=== PATIENT | male | born 1945 | race Caucasian/White ===

== ENCOUNTER → 2019-08-28 08:25 | Outpatient (BNVA) | payer MEDICARE, SELFPAY | PROVIDERS: Family Provider Family Medicine; PCP Nurse Practitioner Family; Referring Provider Licensed Practical Nurse; Visit Provider Anesthesiology Pain Medicine | DX: M51.17 Intervertebral disc disorders with radiculopathy, lumbosacral region (principal); M54.9 Dorsalgia, unspecified; Z79.891 Long term (current) use of opiate analgesic | CPT/HCPCS: 99204 ==

== ENCOUNTER → 2019-09-09 12:57 | Outpatient (BNVA) | payer MEDICARE, SELFPAY | PROVIDERS: Family Provider Family Medicine; PCP Nurse Practitioner Family; Visit Provider Anesthesiology Pain Medicine | DX: M51.17 Intervertebral disc disorders with radiculopathy, lumbosacral region (principal); M47.816 Spondylosis without myelopathy or radiculopathy, lumbar region; M54.9 Dorsalgia, unspecified | CPT/HCPCS: 64493; 64494; 64495; J2001; J3490 ==

== ENCOUNTER → 2019-09-24 08:55 | Outpatient (BNVA) | payer MEDICARE, SELFPAY | PROVIDERS: Family Provider Family Medicine; PCP Nurse Practitioner Family; Visit Provider Anesthesiology Pain Medicine | DX: M19.012 Primary osteoarthritis, left shoulder (principal); M51.17 Intervertebral disc disorders with radiculopathy, lumbosacral region; M54.9 Dorsalgia, unspecified | CPT/HCPCS: 20610; 99214; J1030; J3490 ==

== ENCOUNTER → 2019-10-24 11:25 | Outpatient (BNVA) | payer MEDICARE, SELFPAY | PROVIDERS: Family Provider Family Medicine; PCP Nurse Practitioner Family; Referring Provider Anesthesiology Pain Medicine; Visit Provider Specialist | DX: M25.519 Pain in unspecified shoulder (principal); R52 Pain, unspecified; M19.012 Primary osteoarthritis, left shoulder; M25.512 Pain in left shoulder; M24.012 Loose body in left shoulder | CPT/HCPCS: 73030 ==

== ENCOUNTER 2019-10-31 12:41 | Outpatient (CLI) | payer MEDICARE, SELFPAY ==
--- NOTE | 2019-10-31 13:00 | MR_ITS ---
WS: [id number] MRI LEFT SHOULDER NONCONTRAST TECHNIQUE: Sagittal T2, coronal T1, T2 and proton density imaging. Axial gradient PDE imaging. CLINICAL INFORMATION: M19.019 Primary osteoarthritis, unspecified shoulder COMPARISON: None. FINDINGS: Moderate degenerative arthritis right AC joint with mild edema. Moderate downsloping of the acromion. Slight subacromial spurring. Slight impingement on the supraspinatus and rotator cuff. Chronic thinn ing of the rotator cuff. Mild tendinopathy with a tiny insertional tear distal supraspinatus. Tendino juan distal infraspinatus. Teres minor appears intact. Subscapularis appears intact. No high-grade f ull-thickness rotator cuff tear. Normal biceps tendon in the bicipital groove with physiologic fluid along the tendon sheath. Normal i ntra-articular biceps tendon. Numerous loose bodies involving the subacromial/subdeltoid bursa and subcoracoid bursa. Large loose b odies in the subcoracoid bursa. Hypertrophic spurring glenohumeral joint. Advanced degenerative frayi ng of the glenoid labrum. Prominent protruding osteophyte extending from the humeral neck into the ax illary recess measuring 2.4 x 2.4 cm. MR/MR shoulder LT wo con* [id number] IMPRESSION: 1. Advanced osteoarthritis AC joint with moderate downsloping of the acromion. Chronic thinning of the rotator cuff. 2. No full-thickness rotator cuff tears. Tiny insertional tear distal supraspi natus with tendinopathy in the supraspinatus and infraspinatus. 3. Teres minor appears intact. Subscapularis appears intact. 4. Normal biceps tendon in the bicipital groove.. 5. Large calcified loose bodies in the subacromial/subdeltoid bursa and subcor acoid recess. Large loose bodies in the subcoracoid bursa measure up to 2.1 CM. 6. Hypertrophic spurring along the humeral neck with large protruding osteophy te measuring 2.3 x 2.4 CM.
== END 2019-10-31 12:42 | disposition home or self-care (01) ==
LOC: RADSHAW 12:43
PROVIDERS: PCP Nurse Practitioner Family; Visit Provider Specialist
DX: M19.012 Primary osteoarthritis, left shoulder (principal); M25.712 Osteophyte, left shoulder; M75.102 Unspecified rotator cuff tear or rupture of left shoulder, not specified as traumatic
CPT/HCPCS: 73221

== ENCOUNTER 2019-11-18 11:16 | Outpatient (RCR) | payer MEDICARE, SELFPAY | END 2019-12-02 23:59 | disposition home or self-care (01) | LOC: SPT 11:16 | PROVIDERS: PCP Nurse Practitioner Family; Referring Provider Specialist; Visit Provider Specialist | DX: M25.512 Pain in left shoulder (principal) | CPT/HCPCS: 97110; 97161 ==

== ENCOUNTER → 2019-11-19 09:37 | Outpatient (BNVA) | payer MEDICARE, SELFPAY | PROVIDERS: Family Provider Family Medicine; PCP Nurse Practitioner Family; Visit Provider Anesthesiology Pain Medicine | DX: M47.816 Spondylosis without myelopathy or radiculopathy, lumbar region (principal); M51.17 Intervertebral disc disorders with radiculopathy, lumbosacral region; M54.9 Dorsalgia, unspecified; M19.012 Primary osteoarthritis, left shoulder; M19.011 Primary osteoarthritis, right shoulder | CPT/HCPCS: 99213 ==

== ENCOUNTER 2019-12-03 06:00 | Outpatient (RCR) | payer MEDICARE, SELFPAY | END 2019-12-24 23:00 | disposition home or self-care (01) | LOC: SPT 06:00 | PROVIDERS: PCP Nurse Practitioner Family; Referring Provider Specialist; Visit Provider Specialist | DX: M25.512 Pain in left shoulder (principal) | CPT/HCPCS: 97110 ==

== ENCOUNTER → 2019-12-17 12:25 | Outpatient (BNVA) | payer MEDICARE, SELFPAY | PROVIDERS: Family Provider Family Medicine; PCP Nurse Practitioner Family; Visit Provider Anesthesiology Pain Medicine | DX: M47.816 Spondylosis without myelopathy or radiculopathy, lumbar region (principal); M54.9 Dorsalgia, unspecified | CPT/HCPCS: 64493; 64494; 64495; J3490 ==

== ENCOUNTER → 2020-01-08 08:17 | Outpatient (BNVA) | payer MEDICARE, SELFPAY | PROVIDERS: Family Provider Family Medicine; PCP Nurse Practitioner Family; Visit Provider Anesthesiology Pain Medicine | DX: M51.17 Intervertebral disc disorders with radiculopathy, lumbosacral region (principal); M47.816 Spondylosis without myelopathy or radiculopathy, lumbar region; M54.9 Dorsalgia, unspecified; M19.012 Primary osteoarthritis, left shoulder; M19.011 Primary osteoarthritis, right shoulder | CPT/HCPCS: 99213; 99214 ==

== ENCOUNTER → 2020-02-03 12:48 | Outpatient (BNVA) | payer MEDICARE, SELFPAY | PROVIDERS: Family Provider Family Medicine; PCP Nurse Practitioner Family; Visit Provider Anesthesiology Pain Medicine | DX: M47.816 Spondylosis without myelopathy or radiculopathy, lumbar region (principal); M54.9 Dorsalgia, unspecified | CPT/HCPCS: 64635; 64636; J1030 ==

== ENCOUNTER → 2020-02-17 12:42 | Outpatient (BNVA) | payer MEDICARE, SELFPAY | PROVIDERS: Family Provider Family Medicine; PCP Nurse Practitioner Family; Visit Provider Anesthesiology Pain Medicine | DX: M47.816 Spondylosis without myelopathy or radiculopathy, lumbar region (principal); M54.9 Dorsalgia, unspecified | CPT/HCPCS: 64635; 64636; J1030 ==

== ENCOUNTER → 2020-03-04 09:24 | Outpatient (BNVA) | payer MEDICARE, SELFPAY | PROVIDERS: Family Provider Family Medicine; PCP Nurse Practitioner Family; Visit Provider Anesthesiology Pain Medicine | DX: M51.17 Intervertebral disc disorders with radiculopathy, lumbosacral region (principal); M47.816 Spondylosis without myelopathy or radiculopathy, lumbar region; M19.012 Primary osteoarthritis, left shoulder; M19.011 Primary osteoarthritis, right shoulder; M54.9 Dorsalgia, unspecified; Z79.891 Long term (current) use of opiate analgesic | CPT/HCPCS: 99214 ==

== ENCOUNTER → 2020-04-14 08:34 | Outpatient (BNVA) | payer MEDICARE, SELFPAY | PROVIDERS: Family Provider Family Medicine; PCP Nurse Practitioner Family; Referring Provider Nurse Practitioner Family; Visit Provider Urology | DX: N42.89 Other specified disorders of prostate (principal) | CPT/HCPCS: 81003 ==

== ENCOUNTER → 2020-05-28 08:28 | Outpatient (BNVA) | payer MEDICARE, SELFPAY | PROVIDERS: Family Provider Family Medicine; PCP Nurse Practitioner Family; Visit Provider Anesthesiology Pain Medicine | DX: G89.29 Other chronic pain (principal); M19.012 Primary osteoarthritis, left shoulder; M48.062 Spinal stenosis, lumbar region with neurogenic claudication; M51.17 Intervertebral disc disorders with radiculopathy, lumbosacral region; M19.011 Primary osteoarthritis, right shoulder; M75.82 Other shoulder lesions, left shoulder; M54.9 Dorsalgia, unspecified; M47.816 Spondylosis without myelopathy or radiculopathy, lumbar region | CPT/HCPCS: 20610; 99214; J1030; J3490 ==

== ENCOUNTER → 2020-06-05 11:06 | Outpatient (BNVA) | payer MEDICARE, SELFPAY | PROVIDERS: Family Provider Family Medicine; PCP Nurse Practitioner Family; Referring Provider Anesthesiology Pain Medicine; Visit Provider Orthopaedic Surgery | DX: M47.896 Other spondylosis, lumbar region (principal); M54.5 Low back pain | CPT/HCPCS: 72110 ==

== ENCOUNTER → 2020-06-25 08:24 | Outpatient (BNVA) | payer MEDICARE, SELFPAY | PROVIDERS: Family Provider Family Medicine; PCP Nurse Practitioner Family; Visit Provider Anesthesiology Pain Medicine | DX: M51.17 Intervertebral disc disorders with radiculopathy, lumbosacral region (principal); M19.012 Primary osteoarthritis, left shoulder; M19.011 Primary osteoarthritis, right shoulder; M48.062 Spinal stenosis, lumbar region with neurogenic claudication; M54.9 Dorsalgia, unspecified; M47.816 Spondylosis without myelopathy or radiculopathy, lumbar region; M19.019 Primary osteoarthritis, unspecified shoulder; Z79.891 Long term (current) use of opiate analgesic | CPT/HCPCS: 99214 ==

== ENCOUNTER → 2020-08-05 06:34 | Day surgery (SDC) | payer MEDICARE, SELFPAY | PROVIDERS: PCP Nurse Practitioner Family; Visit Provider Orthopaedic Surgery | DX: Z01.818 Encounter for other preprocedural examination (principal); M48.062 Spinal stenosis, lumbar region with neurogenic claudication | CPT/HCPCS: 93005 ==

== ENCOUNTER → 2020-08-07 09:27 | Outpatient (BNVA) | payer MEDICARE, SELFPAY | PROVIDERS: PCP Nurse Practitioner Family; Visit Provider Orthopaedic Surgery | DX: Z01.812 Encounter for preprocedural laboratory examination (principal); Z20.822 Contact with and (suspected) exposure to COVID-19 | CPT/HCPCS: 87635 ==

== ENCOUNTER 2020-08-14 05:49 | Day surgery (SDC) | payer MEDICARE, SELFPAY ==
[2020-08-05 11:20] VITALS: BMI 36.2
[2020-08-05 11:56] LABS: Basophils % 0.4 %; Eosinophils # 0.1 10^3/uL (0.0-0.8); Eosinophils % 0.9 %; Hematocrit 42.4 % (42.0-52.0); Hemoglobin 14.1 g/dL (11.7-16.6); Lymphocytes # 1.9 10^3/uL (0.8-4.8); Lymphocytes % 19.3 %; Mean Corpuscular HGB Conc 33.3 g/dL (30.0-36.0); Mean Corpuscular Volume 93.2 fL (80-94); Mean Platelet Volume 11.4 fL (7.4-10.4); Monocytes # 0.8 10^3/uL (0.2-0.9); Monocytes % 8.2 %; Neutrophils # 6.95 10^3/uL (1.8-7.7); Neutrophils % 70.9 %; Nucleated Red Blood Cells % 0 %; Platelet Count 213 10^3/cmm (130-400); Red Blood Count 4.55 10^6/uL (4.1-5.3); Red Cell Distribution Width 13.1 % (12.1-15.1); White Blood Count 9.8 10^3/uL (4.0-10.0)
--- NOTE | 2020-08-05 12:09 | ECG_ITS ---
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 Measurements Intervals [place] Rate: 62 P: 167 MT: 170 QRS: 202 QRSD: 94 T: 132 QT: 397 QTc: 405 Interpretive Statements SINUS RHYTHM ARM LEADS REVERSED [INVERTED P AND QRS IN I] ATYPICAL ECG No previous ECG available for comparison Electronically Signed On 08-06-2020 9:41:38 CDT by Guero Tran M.D. [id number]
--- NOTE | 2020-08-05 12:10 | ANES.PREANE2 ---
Pre-Anesthetic Assessment Pre-Anesthetic Assessment: Height/Weight: Height 1.8 m Weight 117.934 kg Preop Diagnosis: lumbar stenosis Proposed Procedure: Operation Date: 08/14/20 09:45 Proposed Procedures p lumbar decompression L3/4 L 4/5 [id number] m48.062(Not Applicable) - Preet Loly Beth, DO Was Beta Dilcia taken within 24 hours: N/A Was Clonidine taken within 24 hours: N/A Social: Social History: No alcohol and No tobacco Exam: Pre-Anes Outpt Exam: alert, oriented x 3, clear to auscultation bilaterally and regular rate & rhythm Airway: Submandibular: WNL Cervical ROM: WNL MP: 2 Dentition: Full Pulmonary: Pulmonary: Sleep apnea CV/HEM: CV/HEM: HTN Metabolic: Metabolic: DM, Hyperlipidemia and Morbid obesity Musc/skel: Musc/skel: Lower Back Pain and OA/DJD Anesthetic Plan: ASA status: 3 Anesthesia: General Risk of > 500 ml blood loss (7ml/kg in children): No PFSH Anesthesia PFSH: Medical History Fatty liver Hx of fracture of arm Hypercholesterolemia Hypertension Intervertebral disc disorder with radiculopathy of lumbosacral 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 Osteoarthritis Pain management contract signed Prostate asymmetry Seasonal allergies Sleep apnea Type 2 diabetes mellitus Surgical History History of cholecystectomy History of partial surgical removal of colon History of tonsillectomy Family History Father , at age 89 Prostate cancer Mother Aortic aneurysm Social History Smoking and tobacco status: former smoker Second hand smoke exposure: No Alcohol intake: current Alcohol intake frequency: holidays/special occasions only Household members: spouse Marital status: Current occupational status: retired History of recent travel: No Data Anesthesia CBC & Chem 7: 08/05/20 11:35 08/05/20 11:35 Other Labs: Laboratory Results - last 48 hr 08/05/20 11:35 WBC 9.8 RBC 4.55 Hgb 14.1 Hct 42.4 MCV 93.2 MCH 31.0 MCHC 33.3 RDW 13.1 Plt Count 213 MPV 11.4 H Neut % (Auto) 70.9 Lymph % (Auto) 19.3 [place] % (Auto) 8.2 Eos % (Auto) 0.9 Baso % (Auto) 0.4 Neut # (Auto) 6.95 Lymph # (Auto) 1.9 [place] # (Auto) 0.8 Eos # (Auto) 0.1 Baso # (Auto) 0.0 Nucleated RBC % (auto) 0 Nucleated RBCs # 0.0 Cardiac Studies: No Data to Display
[2020-08-05 12:21] LABS: Alanine Aminotransferase 42 U/L (0-41); Albumin Level 4.3 g/dL (3.5-5.2); Alkaline Phosphatase 58 IU/L (40-130); Anion Gap 13.3 (5-19); Aspartate Amino Transferase 23 U/L (0-40); Blood Urea Nitrogen 14 mg/dL (8-23); Calcium 8.7 mg/dL (8.5-10.5); Carbon Dioxide 28 mmol/L (22-29); Chloride 103 mmol/L (98-107); Globulin 1.9 g/dL (1.3-4.6); Glucose 124 mg/dL (65-115); Osmolality Calculated 292 mOsm/kg (285-295); Potassium 4.3 mmol/L (3.5-5.1); Sodium 140 mmol/L (136-145); Total Bilirubin 0.6 mg/dL (0.15-1.2); Total Protein 6.2 g/dL (6.6-8.7)
--- NOTE | 2020-08-05 14:36 | ANES.PREANE2 ---
Pre-Anesthetic Assessment Pre-Anesthetic Assessment: Height/Weight: Height 1.8 m Weight 117.934 kg Preop Diagnosis: lumbar stenosis Proposed Procedure: Operation Date: 08/14/20 09:45 Proposed Procedures p lumbar decompression L3/4 L 4/5 [id number] m48.062(Not Applicable) - Preet Beth, DO Was Beta Dilcia taken within 24 hours: N/A Was Clonidine taken within 24 hours: N/A Social: Social History: No alcohol and No tobacco Exam: Pre-Anes Outpt Exam: alert, oriented x 3, clear to auscultation bilaterally and regular rate & rhythm Airway: Submandibular: WNL Cervical ROM: WNL MP: 2 Dentition: Full Pulmonary: Pulmonary: Sleep apnea CV/HEM: CV/HEM: HTN Metabolic: Metabolic: Hyperlipidemia and Morbid obesity Musc/skel: Musc/skel: Lower Back Pain Anesthetic Plan: ASA status: 3 Anesthesia: General Risk of > 500 ml blood loss (7ml/kg in children): No PFSH Anesthesia PFSH: Medical History Fatty liver Hx of fracture of arm Hypercholesterolemia Hypertension Intervertebral disc disorder with radiculopathy of lumbosacral region 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 Osteoarthritis Pain management contract signed Prostate asymmetry Seasonal allergies Sleep apnea Type 2 diabetes mellitus Surgical History History of cholecystectomy History of partial surgical removal of colon History of tonsillectomy Family History Father , at age 89 Prostate cancer Mother Aortic aneurysm Social History Smoking and tobacco status: former smoker Second hand smoke exposure: No Alcohol intake: current Alcohol intake frequency: holidays/special occasions only Household members: spouse Marital status: Current occupational status: retired History of recent travel: No Data Anesthesia CBC & Chem 7: 08/05/20 11:35 08/05/20 11:35 Other Labs: Laboratory Results - last 48 hr 08/05/20 08/05/20 11:35 11:35 WBC 9.8 RBC 4.55 Hgb 14.1 Hct 42.4 MCV 93.2 MCH 31.0 MCHC 33.3 RDW 13.1 Plt Count 213 MPV 11.4 H Neut % (Auto) 70.9 Lymph % (Auto) 19.3 [place] % (Auto) 8.2 Eos % (Auto) 0.9 Baso % (Auto) 0.4 Neut # (Auto) 6.95 Lymph # (Auto) 1.9 [place] # (Auto) 0.8 Eos # (Auto) 0.1 Baso # (Auto) 0.0 Nucleated RBC % (auto) 0 Nucleated RBCs # 0.0 Sodium 140 Potassium 4.3 Chloride 103 Carbon Dioxide 28 Anion Gap 13.3 BUN 14 Creatinine 1.0 GFR Calculation Not Reportable Glucose 124 H Calculated Osmolality 292 Calcium 8.7 Total Bilirubin 0.6 AST 23 ALT 42 H Alkaline Phosphatase 58 Total Protein 6.2 L Albumin 4.3 Globulin 1.9 Cardiac Studies: No Data to Display
[2020-08-14] VITALS (8 sets, daily range): BP systolic 127–152; BP diastolic 67–81; PULSE 56–81; RESP 16–25; TEMP 36.6–36.8; O2SAT 92–99
--- NOTE | 2020-08-14 | SCC_ITS ---
Procedure Done: 1. Bilateral L3/4 laminectomy with partial facetectomies 2. Bilateral L4/5 laminectomies with partial facetectomies 14.7 seconds of fluoroscopic guidance, for a cumulative dose of 8.04 mGy, was provided to Dr. Beth by the radiology department. C-arm images of the lumbar spine were saved for the patient's permanent record. [facility]
--- NOTE | 2020-08-14 | XR_ITS ---
WS: [id number] Lumbar spine, C-arm fluoroscopy, 08/14/2020 Clinical Data: L3/4 L 4/5 lumbar decompression Comparison: Lumbar spine, 06/05/2020. Findings: Dr. Beth performed decompression of the L3-L4 and L4-L5 disc levels. XR/XR lumbar spine 2-3V* [id number] Impression: Lumbar decompression at L3-L4 and L4-L5 levels.
[2020-08-14] MEDS: sodium chloride 0.9% 1,000 ML 30 ML IV (06:20)
--- NOTE | 2020-08-14 06:41 | P.ANESUD_ITS ---
Pre-Anesthetic Update Pre-Anesthetic Assessment: Date of Surgery/Procedure: 08/14/20 Preop Daisy gnosis: lumbar stenosis Proposed Procedure: Operation Date: 08/14/20 07:00 Proposed Procedures p MIS Lumbar Decompression L3/4 L 4/5 [id number] 16627 m48.062(Not Applicable) - Preet Beth, DO Any changes to Pre-Anesthetic Assessment?: No Last Intake: Intake Last Liquid Date 08/13/20 Last Liquid Time 21:00 Last Solid Date 08/13/20 Last Solid Time 20:00 Vitals: Temperature 98.2 F 08/14/20 06:07 Pulse Rate 56 L 08/14/20 06:07 Respiratory Rate 16 08/14/20 06:07 Blood Pressure 127/67 08/14/20 06:07 Blood Pressure Tosha n 87 08/14/20 06:07 Pulse Oximetry 95 08/14/20 06:07 Exam: Pre-Anes Outpt Exam: alert, oriented x 3, clear to auscultation bilaterally and regular rate & rhythm Other Pertinent Information: Other Pertinent Information: Patient states he has pre-existing L shoulder pain and is probably going to have to have it o perated on by Dr. Martinez. Patient informed that positioning for surgery may exacerbate this pain immediately post op. Cardiac Studies: No Data to Display
--- NOTE | 2020-08-14 06:54 | W.PM.OPSUD ---
Surgery/Procedure H&P Update DATE OF PROCEDURE: August 14, 2020 DATE H&P PERFORMED: 08/14/20 PREOP DIAGNOSIS: lumbar stenosis PLANNED PROCEDURE: Operation Date: 08/14/20 07:00 Proposed Procedures p MIS Lumbar Decompression L3/4 L / [id number] m48.062(Not Applicable) - Preet Beth DO
--- NOTE | 2020-08-14 06:54 | PM.HP ---
Providers/Chief Complaint Primary Care Provider: Katina Horn NP Chief Complaint: lumbar decompression L3/4 L 07/06 [id number] History of Present Illness Luis is an established 75 year old male patient here today for follow up. Onset: years Duration: years Characteristics: dull ache, sharp stabbing Severity: 09/10 Location: lower back Radiating symptoms: lower extremities- posterior with the right side being worse Aggravating factors: movement, standing, walking, Alleviating factors: was recent prescribed pain medication by pain management Neuro deficits: none denies numbness, tingling, weakness, incontinence of bowel/bladder, saddle anesthesia. Prior tx: injections with some relief with Dr. Arambula. Ablation on the right with some relief. ablation of left with increased pain and symptoms Associated symptoms: Denies abdominal pain, chills, fever(s), nausea or vomiting Review of Systems Narrative: General ROS: negative for weight changes, fever ENT ROS: negative for nasal congestion, drainage or bleeding, sore throat, dysphagia or ear pain Eyes: PERRL Hematological and Lymphatic ROS: negative for swollen glands or abnormal bleeding Endocrine ROS: negative for polyuria/polydpsia or new changes in weight Respiratory ROS: negative for cough, shortness of breath, or wheezing Cardiovascular ROS: negative for chest pain or dyspnea on exertion Gastrointestinal ROS: negative for reflux, abdominal pain, change in bowel habits, or black or bloody stools Musculoskeletal ROS: negative for back pain, neck pain, or joint pain or swelling except for current problem Neurological ROS: negative for TIA or stoke symptoms Skin: no rashes Medications/Allergies Home Medications Medication Instructions Recorded Confirmed Last Taken Type aspirin 81 mg tablet,delayed 81 mg PO DAILY 08/13/19 08/05/20 Unknown History release atorvastatin 40 mg tablet 40 mg PO DAILY 08/13/19 08/05/20 Unknown History diltiazem HCl 300 mg 300 mg PO DAILY 08/13/19 08/05/20 Unknown History capsule,extended release 24 hr furosemide 20 mg tablet 20 mg PO DAILY 08/13/19 08/14/20 08/13/20 History losartan 100 mg tablet 100 mg PO DAILY 08/13/19 08/14/20 08/13/20 History tamsulosin 0.4 mg capsule 0.4 mg PO DAILY 08/13/19 08/14/20 08/13/20 History acetaminophen 500 mg tablet 500 mg PO Q6H PRN 08/28/19 08/14/20 08/13/20 History levocetirizine 5 mg tablet 5 mg PO DAILY 08/28/19 08/14/20 08/13/20 History fluticasone propionate 50 1 inh INHALATION .prn ea 04/14/20 08/05/20 Unknown History mcg/actuation blister powder for inhalation spironolactone 25 mg tablet 12.5 mg PO DAILY tab 05/28/20 08/14/20 08/13/20 History tizanidine 4 mg tablet 4 mg PO BID PRN #60 tab 06/25/20 08/14/20 08/13/20 Rx tramadol 50 mg tablet 50 mg PO TID PRN 7 Days #21 tab 06/25/20 08/14/20 08/13/20 Rx Allergies Allergy/AdvReac Type Severity Reaction Status Date / Time No Known Allergies Allergy Verified 07/07/20 09:10 PFSH Acute PFSH: Medical History Fatty liver Hx of fracture of arm Hypercholesterolemia Hypertension Intervertebral disc disorder with radiculopathy of 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 Osteoarthritis Pain management contract signed Prostate asymmetry Seasonal allergies Sleep apnea Type 2 diabetes mellitus Surgical History History of cholecystectomy History of partial surgical removal of colon History of tonsillectomy Family History Father , at age 89 Prostate cancer Mother Aortic aneurysm Social History Smoking and tobacco status: former smoker Second hand smoke exposure: No Alcohol intake: current Alcohol intake frequency: holidays/special occasions only Household members: spouse Marital status: Current occupational status: retired History of recent travel: No Vitals/I&O/Wt Last Vital Signs Temp 98.2 F 08/14/20 06:07 Pulse 56 L 08/14/20 06:07 Resp 16 08/14/20 06:07 BP 127/67 08/14/20 06:07 Pulse Ox 95 08/14/20 06:07 Physical Exam Narrative: EXAM NARRATIVE: CONSTITUTIONAL: The patient is a normal appearing [] in no apparent distress. GENERAL: Patient in no acute distress. CARDIAC: Regular rate and rhythm. CHEST: Normal inspiratory effort, normal respiratory rate. ABDOMEN: Soft and nontender. SKIN: Clear, warm and intact. NEURO?PSYCH: The patient is alert and oriented to person, place and time. Sensorv /SILT Motor StrengthShoulder abduction C5 5/5Wrist extension C6 5/5Elbow extension C7 5/5Hand B2B Sales Manager C8 5/5Finger abduction T15/5 Radial/ Ulnar/ Median n intact LowerSensory (SILT)Motor StrengthHin flexion L2/3Ant/inner thigh 5/5Hip adduction L2/3 5/5Knee extension L4 Lat thigh, 5/5Toe dorsiflexion L5 5/5Ankle dorsiflexion L5/ Q21Ktzylsd flexion S1 5/5 DTRBleeps 2+Triceps 2+Brachioradialis 2+Patellar 2+Achilles 2+ MUSCULOSKELETAL: [] UPPEREXTREMITIES: The patient had full active ROM in fingers, wrist, elbow, and shoulder. The patient demonstrated ability to fully flex/extend/abduct/adduct fingers, make ok sign, cross 2nd/3rd digits, extend 1st digit fully.. Radial pulse 2+, CR<2 seconds. LOWER EXTREMITIES: Pt has full, active ROM of toes, ankle, knee, and hip. Dorsalis pedis/posterior tibialis pulses 2+, CR<2 seconds. SPINE: Skin warm, dry, intact. Data : 08/05/20 11:35 08/05/20 11:35 A&P Additional A&P Information failed conservative treatment Attestations Medical Necessity Statement*: failed conservative tx Coding Level of Care Code Acute Appliance Service Technician for Nazia Noriega
--- NOTE | 2020-08-14 08:35 | P.OP_ITS ---
Operative Report Date of procedure: August 14, 2020 Pre-op Diagnosis: lumbar stenosis Post-op diagnosis: same Procedure Done: 1. Bilateral L3/4 laminectomy with partial facetectomies 2. Bilateral L4/5 laminectomies with partial facetectomies Surgeon: Preet Beth Estimated blood loss (mL): 20 Condition: stable Disposition: PACU Procedure: 1. Bilateral L3/4 laminectomy with partial facetectomies 2. Bilateral L4/5 laminectomies with partial facetectomies Patient is brought to the operative suite. After undergoing anesthesia they are placed in the supine position. All areas of impingement are well padded. Patient is then prepped and draped in the normal sterile fashion. A skin incision is made over the L3/4 level. This is confirmed under c-arm guidance. A series of dilators are passed and the tubular retractor is docked on the L3 lamina. A bovie is used to clear the soft tissue off the lamina and the L 3/4 facet joint. A high speed omar is then used to perform the laminectomy and take down the medial aspect of the L 3/4 facet joint. A kerrison rongeure was then used to take down the remaining lamina and smooth the edged of the laminectomy up to the point where the ligamentum flavum attaches. Attention was then brought to the medial aspect of the facet joint. The remai enzo medial aspect of the superior and inferior aspect of the facet joint were taken down with the kerrison from the pedicle of L3 to L 4. The facet joint had significant hypertrophy. Attention was then brought to the Ligamentum Flavum. The ligament was taken down from the lamina of L3 to L4 and out medially to the remaining facet joint. The ligament was thick. The dura was then exposed. The dura was in good repair. The L3 nerve was then traced with a curette out the L3/4 foramen and found to be adequately decompressed. The L4 nerve was traced with a curette around the L4 pedicle. The lateral recess was opened with a kerrison helping to further decompress the L4 nerve. The tubular retractor was then tilted to the contralateral side. The bovie was used to take down the soft tissue on the spinous process. The high speed omar was used to take down the spinous process and then the contralateral lamina of L3. The kerrison rongeur was used to take down the remaining lamina to the point where the ligamentum flavum attached and the ligamentum flavum was taken down from L3 to L4. The kerrison rongeur was then used to reach across and take down the medial aspect of the contralateral L3/4 facet joint.The currete was used to trace the contralateral L3 nerve out the L3/4 foramen to make sure it was decompressed adequatesly and the L4 was traced around the L4 pedicle. The lateral recess was opened further with the kerrison to ensure the L4 is adequately decompressed. Wound is then irrigated copiously with saline and surgiflo is used to stop any bleeding. The tubular retractor is removed A skin incision is made over the L4/5 level. This is confirmed under c-arm guidance. A series of dilators are passed and the tubular retractor is docked on the L4 lamina. A bovie is used to clear the soft tissue off the lamina and the L 4/5 facet joint. A high speed omar is then used to perform the laminectomy and take down the medial aspect of the L 4/5 facet joint. A kerris on rongeure was then used to take down the remaining lamina and smooth the edged of the laminectomy up to the point where the ligamentum flavum attaches. Attention was then brought to the medial aspect of the facet joint. The remaining medial aspect of the superior and inferior aspect of the facet joint were taken down with the kerrison from the pedicle of L4 to L 5. The facet joint had significant hypertrophy. Attention was then brought to the Ligamentum Flavum. The ligament was taken down from the lamina of L4 to L5 and out medially to the remaining facet joint. The ligament was thick. The dura was then exposed. The dura was in good repair. The L4 nerve was then traced with a curette out the L4/5 foramen and found to be adequately decompressed. The L5 nerve was traced with a curette around the L5 pedicle. The lateral recess was opened with a kerrison helping to further decompress the L5 nerve. The tubular retractor was then tilted to the contralateral side. The bovie was used to take down the soft tissue on the spinous process. The high speed omar was used to take down the spinous process and then the contralateral lamina of L4. The kerrison rongeur was used to take down the remaining lamina to the point where the ligamentum flavum attached and the ligamentum flavum was taken down from L4 to L5. The kerrison rongeur was then used to reach across and take down the medial aspect of the contralateral L4/5 facet joint.The currete was used to trace the contralateral L4 nerve out the L4/5 foramen to make sure it was decompressed adequatesly and the L5 was traced around the L5 pedicle. The lateral recess was opened further with the kerrison to ensure the L5 is adequately decompressed. Wound is then irrigated copiously with saline and surgiflo is used to stop any bleeding. The tubular retractor is removed and the wound is closed with vicryl and monocryl suture. Glue is then used to protect the wound. A sterile dressing is then placed. Patient was then placed in the supine position and transferred to the PACU in stable condition.
[2020-08-14] MEDS: HYDROcodone-acetaminophen 5-325 mg Tablet 1 TAB PO (09:29)
--- NOTE | 2020-08-14 11:16 | SUR.PHASEII ---
1000 called [facility] pharmacy regarding pt's rx for pain and pharmacy stated that dr needed to call them regarding rx and it needs to state do not exceed so many tablets in a day or prescription could not be filled,call placed to or nurse and message given to dr paez
--- NOTE | 2020-08-14 13:16 | ANE.PACU2 ---
Inpatient post-anesthesia follow up: Airway intact: Yes Vital signs: Temperature 97.9 F Pulse Rate 64 Respiratory Rate 16 Blood Pressure 138/76 Pulse Oximetry 96 Oxygen Delivery Me thod Room Air Oxygen Flow Rate 3 Fraction of Inspir ed Oxygen Hydration adequate: Yes Nausea and vomiting: No Pain level: 2 Mental status: Baseline
== END 2020-08-14 10:20 | disposition home or self-care (01) ==
PROVIDERS: PCP Nurse Practitioner Family; Visit Provider Orthopaedic Surgery
PROC: (CPT 63005; principal; 2020-08-14 07:00)
DX: M48.061 Spinal stenosis, lumbar region without neurogenic claudication (principal); I10 Essential (primary) hypertension; E78.00 Pure hypercholesterolemia, unspecified; M19.90 Unspecified osteoarthritis, unspecified site; G47.30 Sleep apnea, unspecified; E11.9 Type 2 diabetes mellitus without complications; Z79.82 Long term (current) use of aspirin; Z87.891 Personal history of nicotine dependence; E78.5 Hyperlipidemia, unspecified
CPT/HCPCS: 63047; 63048; 72100; 76000; 80053; 85025; 96365; J0690; J1100; J2405; J2704; J2710; J3010; J3490; J7030

== ENCOUNTER 2021-02-04 10:27 | Outpatient (CLI) | payer MEDICARE, SELFPAY ==
--- NOTE | 2021-02-04 10:37 | CT_ITS ---
WS: [id number] CT CHEST TECHNIQUE: Contrast enhanced CT of the chest with coronal and sagittal reformatted images. CLINICAL INFORMATION: LUNG NODULE COMPARISON: CT July 25, 2017 DLP: 1035.[address] scans at [facility] use at least one of these dose optimization techniques: automated e xposure control; mA and/or kV adjustment per patient size (includes targeted exams where dose is matc hed to clinical indication); or iterative reconstruction. FINDINGS: Both lungs are well aerated. No acute pulmonary infiltrates. No consolidation or pleural fluid. Nonca lcified nodule right upper lobe measuring 3 mm unchanged since July 25, 2017. No other suspicious pu lmonary parenchymal abnormalities. Subsegmental atelectasis in the lung bases. Aortic calcification. Coronary calcification. No mediastinal or hilar lymphadenopathy. No axillary lymphadenopathy. Diffuse fatty infiltration of the liver. Cholecystectomy clips. Adrenal glands are normal. Small esop hageal hiatal hernia. Fatty atrophy of the pancreas. Hypertrophic changes thoracic spine. CT/CT chest w con* [id number] IMPRESSION: 1. 3 mm noncalcified nodule right upper lobe is unchanged since 2017. 2. No acute pulmonary infiltrates. 3. No mediastinal or hilar lymphadenopathy. 4. Small esophageal hiatal hernia. 5. Prior cholecystectomy.
[2021-02-04 12:05] LABS: Blood Urea Nitrogen 11 mg/dL (8-23)
[2021-02-04] MEDS: iohexol 350 mg/mL 100 mL Btl IV (12:30)
== END 2021-02-04 10:28 | disposition home or self-care (01) ==
LOC: CT 10:31
PROVIDERS: PCP Nurse Practitioner Family; Visit Provider Family Medicine
DX: R91.1 Solitary pulmonary nodule (principal); K44.9 Diaphragmatic hernia without obstruction or gangrene; Z90.49 Acquired absence of other specified parts of digestive tract
CPT/HCPCS: 71260; 82565; 84520

== ENCOUNTER → 2021-05-25 10:39 | Outpatient (BNVA) | payer MEDICARE, SELFPAY | PROVIDERS: PCP Family Medicine; Visit Provider Family Medicine | DX: I10 Essential (primary) hypertension (principal) | CPT/HCPCS: 80053; 80061; 82043; 85025 ==

== ENCOUNTER 2021-06-23 08:39 | Outpatient (CLI) | payer MEDICARE, SELFPAY ==
--- NOTE | 2021-06-23 08:54 | XRR_ITS ---
PROCEDURE INFORMATION: Exam: XR Abdomen Exam date and time: 06/23/2021 9:15 AM Age: 76 years old Clinical indication: Other: R flank pain; Prior surgery; Surgery type: Gb, colon TECHNIQUE: Imaging protocol: XR of the abdomen. Views: Frontal supine view of the abdomen. 1 View. Total images: 2 COMPARISON: CT chest w con* [id number] 02/04/2021 12:23 PM FINDINGS: Gastrointestinal tract: Bowel gas pattern is nondistended and nonobstructive. Organs: Surgical clips are present in the right upper quadrant which are suggestive of prior cholecystectomy. Vasculature: Incidental venous phlebolith noted. Bones/joints: Spinal degenerative changes are evident. Soft tissues: Irregular density projecting in the right flank felt to be intraluminal. This appears lower than expected position of the inferior pole of the right kidney. Other findings: Mild stool burden. XR/XR KUB [id number] IMPRESSION: 1. Normal bowel gas pattern 2. Mild stool burden. 3. Irregular density projecting in the right flank felt to be intraluminal. This appears lower than expected position of the inferior pole of the right kidney.
== END 2021-06-23 08:40 | disposition home or self-care (01) ==
PROVIDERS: PCP Family Medicine; Visit Provider Family Medicine
DX: R10.9 Unspecified abdominal pain (principal)
CPT/HCPCS: 74018; 81000

== ENCOUNTER → 2021-11-15 09:47 | Outpatient (BNVA) | payer MEDICARE, SELFPAY | PROVIDERS: PCP Family Medicine; Visit Provider Family Medicine | DX: Z13.6 Encounter for screening for cardiovascular disorders (principal); Z79.899 Other long term (current) drug therapy | CPT/HCPCS: 80053; 80061; 83036; 85025 ==

== ENCOUNTER → 2022-03-21 08:30 | Outpatient (BNVA) | payer MEDICARE, SELFPAY | PROVIDERS: PCP Family Medicine; Referring Provider Family Medicine; Visit Provider Specialist | DX: M19.012 Primary osteoarthritis, left shoulder (principal); M75.82 Other shoulder lesions, left shoulder | CPT/HCPCS: 20610; 73030; 99213 ==

== ENCOUNTER → 2022-05-23 08:10 | Outpatient (BNVA) | payer MEDICARE, SELFPAY | PROVIDERS: PCP Family Medicine; Visit Provider Family Medicine | DX: E11.9 Type 2 diabetes mellitus without complications (principal) | CPT/HCPCS: 80053; 83036 ==

== ENCOUNTER → 2022-06-23 08:29 | Outpatient (BNVA) | payer MEDICARE, SELFPAY | PROVIDERS: PCP Family Medicine; Visit Provider Specialist | DX: M75.82 Other shoulder lesions, left shoulder (principal); M19.012 Primary osteoarthritis, left shoulder | CPT/HCPCS: 20610; J1100; J2795; J3301 ==

== ENCOUNTER → 2022-09-29 13:38 | Outpatient (BNVA) | payer MEDICARE, SELFPAY | PROVIDERS: PCP Family Medicine; Visit Provider Specialist | DX: M75.82 Other shoulder lesions, left shoulder (principal); M19.012 Primary osteoarthritis, left shoulder | CPT/HCPCS: 20610; J1100; J2795; J3301 ==

== ENCOUNTER → 2022-11-14 08:26 | Outpatient (BNVA) | payer MEDICARE, SELFPAY | PROVIDERS: PCP Family Medicine; Visit Provider Family Medicine | DX: I10 Essential (primary) hypertension (principal); E11.9 Type 2 diabetes mellitus without complications | CPT/HCPCS: 80053; 80061; 82043; 83036; 85025 ==

== ENCOUNTER → 2022-12-29 08:16 | Outpatient (BNVA) | payer MEDICARE, SELFPAY | PROVIDERS: PCP Family Medicine; Visit Provider Specialist | DX: M19.012 Primary osteoarthritis, left shoulder; Z71.89 Other specified counseling | CPT/HCPCS: 20610; J1100; J2795; J3301 ==

== ENCOUNTER → 2023-02-16 10:12 | Outpatient (BNVA) | payer MEDICARE, SELFPAY | PROVIDERS: PCP Family Medicine; Visit Provider Family Medicine | DX: Z23 Encounter for immunization (principal); E11.9 Type 2 diabetes mellitus without complications | CPT/HCPCS: 83036 ==

== ENCOUNTER → 2023-03-23 15:16 | Outpatient (BNVA) | payer MEDICARE, SELFPAY | PROVIDERS: PCP Family Medicine; Visit Provider Orthopaedic Surgery | DX: G89.29 Other chronic pain; M48.062 Spinal stenosis, lumbar region with neurogenic claudication | CPT/HCPCS: 72100; 99214 ==

== ENCOUNTER → 2023-04-13 08:38 | Outpatient (BNVA) | payer MEDICARE, SELFPAY | PROVIDERS: PCP Family Medicine; Visit Provider Specialist | DX: M19.012 Primary osteoarthritis, left shoulder (principal); Z71.89 Other specified counseling | CPT/HCPCS: 20610; J1100; J2795; J3301 ==

== ENCOUNTER 2023-04-19 08:38 | Emergency (ER) | payer MEDICARE, SELFPAY ==
[2023-04-19 08:50] VITALS: BP 165/94; PULSE 90; RESP 18; TEMP 36.8; O2SAT 93; BMI 37.6
[2023-04-19] MEDS: morphine 4 mg/mL SDV 1 mL IVP (09:13)
[2023-04-19] MEDS: ketorolac 30 mg/mL INJ IVP (09:13)
[2023-04-19] MEDS: dexamethasone 10 mg/mL INJ IVP (09:13)
[2023-04-19] MEDS: orphenadrine 30 mg/mL Inj 2 mL 60 MG IVP (09:14)
[2023-04-19 09:22] VITALS: BP 124/81; PULSE 90; RESP 18; O2SAT 93
--- NOTE | 2023-04-19 09:23 | PC.PHAR ---
04/19/23 SPOUSE VERIFIED MEDICATIONS AND HAS GONE TO APPOINTMENT AT 9:15AM AND WILL RETURN IN AN HOUR OR SO.
--- NOTE | 2023-04-19 10:32 | ED_ITS ---
HPI - Extremity Problem General: Chief complaint: Extremity Injury, Lower Stated complaint: lower back pain down to right leg Time Seen by Provider: 04/19/23 08:43 Source: patient Mode of arrival: ambulatory History of Present Illness: 78-year-old [facility] with complaints of low back pain with right radicular pain. He is seeing Dr. Beth he is scheduled for CT myelogram later this week. He has been taking old prescription of hydrocodone he is complaining of increasing pain. No fecal incontinence or urinary retention the pain radiates down the lateral portion of his right leg to the level of the knee. Complaint: extremity pain Onset (ago): week(s) Pain Consistency: constant Location: right and lower extremity Quality: sharp Radiation: distal Relieving factors: rest Exacerbating factors: walking Associated symptoms: Deny arthralgias, chest pain, fever(s), myalgias, rash or short of breath Review of Systems Const: Denies: fever(s) Card: Denies: chest pain Resp: Denies: dyspnea GI: Denies: abdominal pain : Denies: dysuria, urinary frequency or urinary urgency Musc: Denies: neck pain or back pain Skin/Breast: Denies: rash PFSH ED PFSH: Medical History Prostate asymmetry Fatty liver Hypertension Hypercholesterolemia Sleep apnea Seasonal allergies 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 Pain management contract signed Intervertebral disc disorder with radiculopathy of lumbosacral region Osteoarthritis Surgical History History of tonsillectomy History of cholecystectomy History of partial surgical removal of colon Due to malignant polyp Family History Father , at age 89 Prostate cancer Mother Aortic aneurysm Social History Smoking and tobacco/nicotine status: never used tobacco/nicotine Second hand smoke exposure: No Alcohol intake: current Alcohol intake frequency: holidays/special occasions only Substance/Drug Use: never Household members: spouse Marital status: Current occupational status: retired Physical Exam Const: GENERAL APPEARANCE: cooperative and comfortable ORIENTATION/CONSCIOUSNESS: Yes awake, Yes oriented to person, Yes oriented to place and Yes oriented to time HENMT: COMMON NORMALS: normocephalic, atraumatic and hearing grossly normal bilaterally HEAD & SCALP: normocephalic and atraumatic Resp: COMMON NORMALS: normal respiratory effort, No retractions, No use of accessory muscles and clear to auscultation bilaterally AUSCULTATION: clear to auscultation bilaterally Cardio: COMMON NORMALS: regular rate, regular rhythm and No murmurs present (Cardio) RATE: regular rate RHYTHM: regular rhythm GI: COMMON NORMALS: Soft to palpation and No hepatosplenomegaly present AUSCULTATION: Yes normoactive bowel sounds PALPATION: Yes Soft to palpation, No Tenderness to palpation present (GI), No Guarding due to palpation present (GI) and Yes No hepatosplenomegaly present Extremity: COMMON NORMALS: normal to inspection, capillary refill normal, no clubbing, cyanosis or edema, no calf tenderness and no pedal edema Neuro: SENSORIUM/ORIENTATION: Yes oriented to person, Yes oriented to place and Yes oriented to time OTHER: Dorsal bladder flexion 5/5 sensation lower extremity normal straight leg raising negative. Skin: COMMON NORMALS: no rashes or lesions noted GENERAL SKIN EXAM: no rashes or lesions noted Course Vital Signs: Vital signs: Vital Signs Temperature 98.2 F 04/19/23 08:50 Pulse Rate 90 04/19/23 09:22 Respiratory Rate 18 04/19/23 09:22 Blood Pressure 124/81 04/19/23 09:22 Pulse Oximetry 93 04/19/23 09:22 Oxygen Delivery Me thod Room Air 04/19/23 09:22 MDM - Extremity (Nontraumatic) Medical Decision Making No red flag symptoms at this point. Patient has a CT myelogram set up and follow-up with Dr. Beth recommended acute therapy reported. We did prescribe steroid taper tizanidine and diclofenac. He has been taking hydrocodone from a family member's prescription since has been a chronic problem I recommend that he follow-up with Dr. Beth's office for further pain control recommendations we did contact his office form and they stated they would be calling something in for him. Medical Records I reviewed the patient's medical records. Lab Data I reviewed the patient's lab results. No radiology studies performed this visit Discharge Plan Discharge Patient Disposition: Home Clinical Impression: Intervertebral disc disorder with radiculopathy of lumbosacral region Chronic low back pain Qualifiers: Back pain laterality: midline Sciatica presence: without sciatica Qualified Code(s): M54.50 - Low back pain, unspecified Condition: Stable Prescriptions: New tizanidine 4 mg tablet 4 mg PO Q6H PRN (Reason: muscle spasticity) Qty: 20 0RF Rx Instructions: do not exceed 3 doses per 24 hrs prednisone 20 mg tablet 20 mg PO TID Qty: 15 0RF Rx Instructions: 1 p.o. 3 times daily x3 days, 1 p.o. twice daily x2 days, 1 p.o. daily x2 days diclofenac sodium 75 mg tablet,delayed release (DR/EC) 75 mg PO Q12H PRN (Reason: pain) Qty: 20 0RF Discontinued ibuprofen [Advil] 200 mg tablet 200 mg PO Q6H PRN (Reason: Pain) Advil PM 200-38 mg tablet 1 tab PO QPM No Action aspirin [Adult Aspirin Regimen] 81 mg tablet,delayed release (DR/EC) 81 mg PO QAM acetaminophen [Tylenol Extra Strength] 500 mg tablet 500 mg PO Q6H PRN (Reason: Mild Pain (Scale Score 1-4)) levocetirizine [Xyzal] 5 mg tablet 5 mg PO DAILY PRN (Reason: allergies) zinc gluconate 30 mg tablet 30 mg PO QAM potassium gluconate 600 mg (99 mg) tablet 600 mg PO QAM hydrocodone-acetaminophen 5-325 mg tablet 1 - 2 tab PO Q6H PRN (Reason: pain) 7 Days Qty: 40 0RF atorvastatin 40 mg tablet 40 mg PO QAM diltiazem HCl 300 mg capsule,extended release 24hr 300 mg PO QAM multivitamin Tablet 1 tab PO QAM losartan 100 mg tablet 100 mg PO QAM Discharge Orders: Discharge ED (Routine); Ordered 04/19/23 Ordered By: Brant Mehta Referrals: Sanjuana Luong DO [Primary Care Provider] - Discharge Diet: Usual diet Discharge Activity: Increase activity as tolerated Patient Instructions: Opioid Safety, Pain Management Activity Restrictions/Additional Instructions: Thank you for choosing [facility] for your healthcare needs today. Please realize this is an emergency room and that we are providing you with a medical screening exam and this may not be complete and all inclusive of all the testing and or work up that you may need to determine your ailment or severity of your illness. It is very important that you follow up as instructed or that you return to the Emergency Department should you have concerns or if your condition changes or worsens in any way. You were seen today for back pain with pain radiating to your right leg. Keep your follow-up appointments and follow-up outpatient testing that Dr. Beth as previously recommended. You are given pain medications and steroids and muscle relaxer here in the emergency room. Prescriptions given for steroids anti- inflammatories and muscle relaxers follow-up with Dr. Beth for further pain medications. 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
== END 2023-04-19 11:34 | disposition home or self-care (01) ==
PROVIDERS: Emergency Provider Family Medicine; PCP Family Medicine
DX: M51.17 Intervertebral disc disorders with radiculopathy, lumbosacral region (principal)
CPT/HCPCS: 96374; 96375; 99284; J1100; J1885; J2270; J2360

== ENCOUNTER 2023-04-21 08:44 | Outpatient (CLI) | payer MEDICARE, SELFPAY ==
--- NOTE | 2023-04-21 08:48 | CT_ITS ---
WS: [id number] CT LUMBAR MYELOGRAM TECHNIQUE: CT myelogram of the lumbar spine with coronal and sagittal reformatted images post intrat hecal administration of contrast. CLINICAL INFORMATION: lumbar pain COMPARISON: MRI 06/23/2020 DLP: 1651.[address] scans at [facility] use at least one of these dose optimization techniques: automated e xposure control; mA and/or kV adjustment per patient size (includes targeted exams where dose is matc hed to clinical indication); or iterative reconstruction. FINDINGS: Moderate spondylitic changes. Mild lumbar curve. Disc space narrowing L3-L4 L4-L5 and L5-S1 with vacu um disc phenomenon progressed compared to the prior MRI. Disc base narrowing L2-3 with vacuum disc ph enomenon. Aortic calcification. L1-L2: Mild disc bulging. Spinal canal is patent. Mild RIGHT and no significant LEFT foraminal narrow ing. L2-L3: Disc desiccation with vacuum disc phenomenon. Mild disc bulging with slight effacement of the ventral thecal sac. Moderate RIGHT and mild LEFT foraminal narrowing. Mild central canal stenosis. Mo derate facet arthropathy ligamentum flavum hypertrophy. L3-L4: Mild disc bulging with moderate central canal stenosis. Impingement LEFT subarticular recess. Moderate facet arthropathy. Moderate bilateral foraminal narrowing. L4-L5: Disc osteophyte complex with endplate ridging. Moderate bilateral bony foraminal narrowing imp inges the exiting L4 nerve roots bilaterally. Mild central canal stenosis. Moderate facet arthropathy ligamentum flavum hypertrophy. Narrowing of the LEFT subarticular recess.. L5-S1: Disc osteophyte complex with endplate ridging. Moderate LEFT and mild RIGHT foraminal narrowin g. Moderate facet arthropathy. Visualized pelvic bony structures: Normal. Paravertebral soft tissues: Normal. IMPRESSION: 1. Progressed disc space narrowing throughout the lumbar spine worst at L3-L4 L4-L5 and L5-S1 compar ed to previous. 2. Mild central canal stenosis L2-3, moderate L3-4, and mild L4-5 stable compared to 2020. Narrowing of the LEFT L4-5 subarticular recess. 3. Moderate bilateral L4-L5 foraminal narrowing with impingement exiting L4 nerve roots bilaterally. This appears progressed compared to previous. 4. Moderate bilateral L3-4 foraminal narrowing appears progressed compared to previous. 5. Moderate facet arthropathy L3-L5.
--- NOTE | 2023-04-21 09:30 | IR_ITS ---
WS: [id number] MYELOGRAM LUMBAR SPINE Fluoroscopic guided lumbar myelogram CLINICAL INFORMATION: lumbar pain COMPARISON: None. TECHNIQUE: The procedure, including risks, benefits, and complications, were discussed with the patie nt who agreed to proceed. A timeout was performed to confirm correct patient, procedure, and site. Using sterile technique, the patient was prepped and draped in the usual sterile fashion. After admin istration of local anesthesia using 1% preservative-free lidocaine and using fluoroscopic guidance, a 22-gauge spinal needle was advanced into the subarachnoid space at the L1-2 level. Subsequently 13 c c of Omnipaque 240 was administered into the thecal sac. The needle was removed and hemostasis was ac hieved. Spot fluoroscopic images were obtained. FLUOROSCOPIC TIME: 3min [id number] # of spot films: 1 Spot fluoroscopic images demonstrate advanced spondylitic changes lumbar spine. Mild lumbar curve. Os teopenia. Disc space narrowing throughout the lumbar spine worse at L3-L4 L4-L5. Aortic calcification . Anterior hypertrophic changes. Multilevel mild to moderate spinal canal narrowing throughout the penelope mbar spine. IMPRESSION: 1. Uncomplicated lumbar myelogram. 2. Please see CT myelogram report for additional detail.
== END 2023-04-21 08:45 | disposition home or self-care (01) ==
LOC: RAD 08:45
PROVIDERS: PCP Family Medicine; Visit Provider Orthopaedic Surgery
DX: M48.07 Spinal stenosis, lumbosacral region (principal); G89.29 Other chronic pain; M47.817 Spondylosis without myelopathy or radiculopathy, lumbosacral region
CPT/HCPCS: 62304; 72131; Q9966

== ENCOUNTER → 2023-04-25 10:10 | Outpatient (BNVA) | payer MEDICARE, SELFPAY | PROVIDERS: PCP Family Medicine; Visit Provider Orthopaedic Surgery | DX: M48.062 Spinal stenosis, lumbar region with neurogenic claudication (principal); G89.29 Other chronic pain; Z01.812 Encounter for preprocedural laboratory examination; Z79.899 Other long term (current) drug therapy | CPT/HCPCS: 36415; 80053; 85025; 99214 ==

== ENCOUNTER 2023-04-27 08:22 | Outpatient (CLI) | payer MEDICARE, SELFPAY ==
[2023-04-27 08:31] LABS: Add Urine Microscopic? NO; Charge for UA Resulting for Rev
[2023-04-27 08:58] LABS: Urine Appearance Clear (CLEAR); Urine Color Yellow (Yellow)
[2023-04-27 08:59] LABS: Bilirubin Urine Neg (Negative); Blood Urine Neg (Negative); Glucose Urine UA Norm (Normal); Ketones Urine Negative (Negative); Leukocyte Esterase Urine Negative (Negative); Nitrate Urine Negative (Negative); Protein Urine Neg (Negative); Urobilinogen Urine Norm (Negative); pH Urine 6 (5-7)
== END 2023-04-27 08:23 | disposition home or self-care (01) ==
LOC: LAB 08:23
PROVIDERS: PCP Family Medicine; Visit Provider Orthopaedic Surgery
DX: M54.50 Low back pain, unspecified (principal); G89.29 Other chronic pain
CPT/HCPCS: 81003

== ENCOUNTER → 2023-05-09 14:53 | Outpatient (BNVA) | payer MEDICARE, SELFPAY | PROVIDERS: PCP Family Medicine; Visit Provider Family Medicine | DX: Z01.818 Encounter for other preprocedural examination (principal); Z79.899 Other long term (current) drug therapy | CPT/HCPCS: 85025 ==

== ENCOUNTER 2023-05-15 08:07 | Day surgery (SDC) | payer MEDICARE, SELFPAY ==
[2023-05-15] VITALS (11 sets, daily range): BP systolic 92–163; BP diastolic 67–95; PULSE 75–85; RESP 13–26; TEMP 36.4–37.3; O2SAT 91–95
--- NOTE | 2023-05-15 | XR_ITS ---
WS: [id number] C-ARM RADIOGRAPHS LUMBAR SPINE; 4 IMAGES HISTORY: MISHA HERNANDEZ COMPARISON: 08/14/2020 Intraoperative imaging during decompression in the lumbar spine at several levels. IMPRESSION: Intraoperative imaging during spine decompression.
[2023-05-15] MEDS: sodium chloride 0.9% 1,000 ML 30 ML IV (09:04)
[2023-05-15] MEDS: HYDROmorphone 1 mg/mL INJ 1 mL 0.5 MG IVP ×2 (09:18→15:25)
--- NOTE | 2023-05-15 10:35 | W.PM.OPSUD ---
Surgery/Procedure H&P Update DATE OF PROCEDURE: May 15, 2023 DATE H&P PERFORMED: 05/09/23 H&P UPDATE INFORMATION: I have reviewed H&P completed within last 30 days, I have examined patient prior to procedure and No changes to prior documentation PREOP DIAGNOSIS: Lumbar stenosis with neurogenic claudication PLANNED PROCEDURE: Operation Date: 05/15/23 09:55 Proposed Procedures p Lumbar Spine Decompression Lumbar Decompression/ standing on the right(Right) - Preet Beth DO
--- NOTE | 2023-05-15 10:43 | ANES.PREANE2 ---
Pre-Anesthetic Assessment Height/Weight: Height 1.8 m Weight 120.656 kg Temp Pulse Resp BP Pulse Ox O2 Del Method 98.9 F 77 18 124/92 93 Room Air 05/15/23 08:18 05/15/23 08:18 05/15/23 08:18 05/15/23 08:18 05/15/23 08:18 05/15/23 09:01 Preop Diagnosis: Lumbar stenosis with neurogenic claudication Operation Date: 05/15/23 09:55 Proposed Procedures p Lumbar Spine Decompression Lumbar Decompression/ standing on the right(Right) - Preet H Ignacia, DO Familial anesthetic complications: none Was Beta Dilcia taken within 24 hours: N/A Was Clonidine taken within 24 hours: N/A Last intake: Intake Last Liquid Date 05/14/23 Last Liquid Time 20:00 Last Solid Date 05/14/23 Last Solid Time 19:00 Social No alcohol and No tobacco Exam alert, oriented x 3, clear to auscultation bilaterally and regular rate & rhythm Airway Submandibular: within normal limits Cervical ROM: within normal limits Mallampati: Class II Dentition: chipped and caps Pulmonary Sleep Apnea CV/HEM Hypertension Metabolic Diabetes Mellitus, Hyperlipidemia and Morbid Obesity [facility] [place], [place] Lower Back Pain and Osteoarthritis/DJD Anesthetic Plan ASA status: 3 Anesthesia: General Medications/Allergies Home Medications Medication Instructions Recorded Confirmed Last Taken Type atorvastatin 40 mg tablet 40 mg PO QAM 04/19/23 05/12/23 05/14/23 History diltiazem HCl 300 mg 300 mg PO QAM 04/19/23 05/12/23 05/15/23 History capsule,extended release 24 hr losartan 100 mg tablet 100 mg PO QAM 04/19/23 05/12/23 05/14/23 History hydrocodone 5 mg-acetaminophen 325 1 - 2 tab PO Q6H PRN pain 7 days 04/25/23 05/12/23 05/15/23 Rx mg tablet #40 tabs tizanidine 4 mg tablet 4 mg PO Q6H PRN muscle spasticity 04/25/23 05/12/23 05/14/23 Rx #20 tabs Allergies Allergy/AdvReac Type Severity Reaction Status Date / Time No Known Allergies Allergy Verified 05/15/23 08:43 Current Medications Generic Name Dose Route Start Last Admin Trade Name Freq PRN Reason Stop Dose Admin Hydromorphone HCl 0.5 mg 05/15/23 08:18 05/15/23 09:18 Hydromorphone 1 Mg/Ml Inj 1 Ml IVP 0.5 mg ONCE PRN Administration For preop pain/anxiety Sodium Chloride 1,000 mls @ 30 mls/hr 05/15/23 08:30 05/15/23 09:04 Sodium Chloride 0.9% IV 05/16/23 08:29 30 mls/hr .Q24H CORA Administration PFSH Anesthesia Medical History Prostate asymmetry Fatty liver Hypertension Hypercholesterolemia Sleep apnea Seasonal allergies Hx of fracture of arm long-term (current) use of opiate analgesic Pain management contract signed Intervertebral disc disorder with radiculopathy of lumbosacral region Osteoarthritis Surgical History History of tonsillectomy History of cholecystectomy History of partial surgical removal of colon Due to malignant polyp Family History Father , at age 89 Prostate cancer Mother Aortic aneurysm Social History Smoking and tobacco/nicotine status: never used tobacco/nicotine Second hand smoke exposure: No Alcohol intake: current Alcohol intake frequency: holidays/special occasions only Substance/Drug Use: never Household members: spouse Marital status: Current occupational status: retired Data Anesthesia Cardiac Studies: No Data to Display
[2023-05-15] MEDS: ceFAZolin 2,000 MG in sodium chloride 0.9% (plus) 50 ML 100 MG IV (12:42)
[2023-05-15] MEDS: ceFAZolin 1,000 mg SDV 1000 MG IVP (12:43)
[2023-05-15] MEDS: lidocaine-epi 1% 20 mL INJ INJECTION (13:13)
--- NOTE | 2023-05-15 15:12 | P.OP_ITS ---
Operative Report Date of procedure: May 15, 2023 Pre-op diagnosis: Lumbar stenosis with neurogenic claudication Post-op diagnosis: same Procedure done: 1. L2-3 laminectomy with partial facetectomy 2. L3-4 laminectomy with partial facetectomy 3. L4-5 laminectomy with partial facetectomy Surgeon: Preet Beth DO Estimated blood loss (mL): 25 Procedure: 1. L2-3 laminectomy with partial facetectomy 2. L3-4 laminectomy with partial facetectomy 3. L4-5 laminectomy with partial facetectomy Patient is brought to the operative suite. After undergoing anesthesia they are placed in the prone position. All areas of impingement are well padded. Patient is then prepped and draped in the normal sterile fashion. A skin incision is made over the L2/3 level. This is confirmed under c-arm guidance. A series of dilators are passed and the tubular retractor is docked on the L2 lamina. A bovie is used to clear the soft tissue off the lamina and the L 2/3 facet joint. A high speed omar is then used to perform the laminectomy and take down the medial aspect of the L 2/3 facet joint. A kerrison rongeure was then used to take down the remaining lamina and smooth the edge of the laminectomy up to the point where the ligamentum flavum attaches. Attention was then brought to the medial aspect of the facet joint. The remaining medial aspect of the superior and inferior aspect of the facet joint were taken down with the kerrison from the pedicle of L2 to L 3. The facet ora nt had significant hypertrophy. Attention was then brought to the Ligamentum Flavum. The ligament was taken down from the lamina of L2 to L3 and out medially to the remaining facet joint. The ligament was thick. The dura was then exposed. The dura was in good repair. The L2 nerve was then traced with a curette out the L2/3 foramen and found to be adequately decompressed. The L3 nerve was traced with a curette around the L3 pedicle. The lateral recess was opened with a kerrison helping to further decompress the L3 nerve. Wound is then irrigated copiously with saline and surgiflo is used to stop any bleeding. The tubular retractor is removed and A skin incision is made over the L3/4 level. This is confirmed under c-arm guidance. A series of dilators are passed and the tubular retractor is docked on the L3 lamina. A bovie is used to clear the soft tissue off the lamina and the L 3/4 facet joint. A high speed omar is then used to perform the laminectomy and take down the medial aspect of the L 3/4 facet joint. A kerrison rongeure was then used to take down the remaining lamina and smooth the edge of the laminectomy up to the point where the ligamentum flavum attaches. Attention was then brought to the medial aspect of the facet joint. The remaining medial aspect of the superior and inferior aspect of the facet joint were taken down with the kerrison from the pedicle of L3 to L 4. The facet joint had significant hypertrophy. Attention was then brought to the Ligamentum Flavum. The ligament was taken down from the lamina of L3 to L4 and out medially to the remaining facet joint. The ligament was thick. The dura was then exposed. The dura was in good repair. The L3 nerve was then traced with a curette out the L3/4 foramen and found to be adequately decompressed. The L4 nerve was traced with a curette around the L4 pedicle. The lateral recess was opened with a kerrison helping to further decompress the L4 nerve. Wound is then irrigated copiously with saline and surgiflo is used to stop any bleeding. The tubular retractor is removed and A skin incision is made over the L4/5 level. This is confirmed under c-arm guidance. A series of dilators are passed and the tubular retractor is docked on the L4 lamina. A bovie is used to clear the soft tissue off the lamina and the L 4/5 facet joint. A high speed omar is then used to perform the evelia ectomy and take down the medial aspect of the L 4/5 facet joint. A kerrison rongeure was then used to take down the remaining lamina and smooth the edge of the laminectomy up to the point where the ligamentum flavum attaches. Attention was then brought to the medial aspect of the facet joint. The remaining medial aspect of the superior and inferior aspect of the facet joint were taken down with the kerrison from the pedicle of L4 to L 5. The facet joint had significant hypertrophy. Attention was then brought to the Ligamentum Flavum. The ligament was taken down from the lamina of L4 to L5 and out medially to the remaining facet joint. The ligament was thick. The dura was then exposed. The dura was in good repair. The L4 nerve was then traced with a curette out the L4/5 foramen and found to be adequately decompressed. The L5 nerve was traced with a curette around the L5 pedicle. The lateral recess was opened with a kerrison helping to further decompress the L5 nerve. Wound is then irrigated copiously with saline and surgiflo is used to stop any bleeding. The tubular retractor is removed and the wound is closed with vicryl and monocryl suture. Glue is then used to protect the wound. A sterile dressing is then placed. Patient was then placed in the supine position and transferred to the PACU in stable condition.
[2023-05-15] MEDS: HYDROcodone-acetaminophen 10-325 mg Tablet 1 TAB PO (15:27)
[2023-05-15] MEDS: meperidine 50 mg/mL INJ 12.5 MG IVP (15:31)
--- NOTE | 2023-05-15 16:16 | ANE.PACU2 ---
Inpatient post-anesthesia follow up: Airway intact: Yes Vital signs: Temperature 97.6 F Pulse Rate 75 Respiratory Rate 18 Blood Pressure 127/95 Pulse Oximetry 93 Oxygen Delivery Me thod Room Air Oxygen Flow Rate 6 Fraction of Inspir ed Oxygen Hydration adequate: Yes Nausea and vomiting: No Pain level: 3 Mental status: Baseline
== END 2023-05-15 16:35 | disposition home or self-care (01) ==
PROVIDERS: PCP Family Medicine; Visit Provider Orthopaedic Surgery
PROC: (CPT 63005; principal; 2023-05-15 09:45)
DX: M48.062 Spinal stenosis, lumbar region with neurogenic claudication (principal); G47.30 Sleep apnea, unspecified; I10 Essential (primary) hypertension; E11.9 Type 2 diabetes mellitus without complications; E78.5 Hyperlipidemia, unspecified; E66.01 Morbid (severe) obesity due to excess calories; Z68.37 Body mass index [BMI] 37.0-37.9, adult; E78.00 Pure hypercholesterolemia, unspecified; Z79.891 Long term (current) use of opiate analgesic
CPT/HCPCS: 63047; 63048 ×2; 72100; 76000; J0690; J1170; J2175; J2371; J2704; J2710; J3010; J3490; J7030; P9045

== ENCOUNTER → 2023-05-30 12:44 | Outpatient (BNVA) | payer MEDICARE, SELFPAY | PROVIDERS: PCP Family Medicine; Visit Provider Orthopaedic Surgery | DX: M48.062 Spinal stenosis, lumbar region with neurogenic claudication (principal) | CPT/HCPCS: 99024 ==

== ENCOUNTER → 2023-06-27 12:31 | Outpatient (BNVA) | payer MEDICARE, SELFPAY | PROVIDERS: PCP Family Medicine; Visit Provider Orthopaedic Surgery | DX: Z98.890 Other specified postprocedural states (principal) | CPT/HCPCS: 99024 ==

== ENCOUNTER → 2023-07-28 08:48 | Outpatient (BNVA) | payer MEDICARE, SELFPAY | PROVIDERS: PCP Family Medicine; Visit Provider Specialist | DX: M19.012 Primary osteoarthritis, left shoulder (principal); Z71.89 Other specified counseling | CPT/HCPCS: 20610; J1100; J2795; J3301 ==

== ENCOUNTER → 2023-08-08 08:52 | Outpatient (BNVA) | payer MEDICARE, SELFPAY | PROVIDERS: PCP Family Medicine; Visit Provider Orthopaedic Surgery | DX: Z98.890 Other specified postprocedural states (principal) | CPT/HCPCS: 99024 ==

== ENCOUNTER → 2023-08-21 10:55 | Outpatient (BNVA) | payer MEDICARE, SELFPAY | PROVIDERS: PCP Family Medicine; Visit Provider Family Medicine | DX: E11.9 Type 2 diabetes mellitus without complications (principal); Z12.5 Encounter for screening for malignant neoplasm of prostate; N42.89 Other specified disorders of prostate | CPT/HCPCS: 80053; 83036; G0103 ==

== ENCOUNTER → 2023-11-03 10:50 | Outpatient (BNVA) | payer MEDICARE, SELFPAY | PROVIDERS: PCP Family Medicine; Visit Provider Specialist | DX: M19.012 Primary osteoarthritis, left shoulder (principal) | CPT/HCPCS: 20610 ==

== ENCOUNTER → 2024-02-16 10:42 | Outpatient (BNVA) | payer MEDICARE, SELFPAY | PROVIDERS: PCP Family Medicine; Visit Provider Specialist | DX: M19.012 Primary osteoarthritis, left shoulder; Z71.89 Other specified counseling | CPT/HCPCS: 20610; J1100; J2795; J3301 ==

== ENCOUNTER → 2024-04-08 11:22 | Outpatient (BNVA) | payer MEDICARE, SELFPAY | PROVIDERS: PCP Family Medicine; Visit Provider Family Medicine | DX: E78.00 Pure hypercholesterolemia, unspecified (principal); E11.9 Type 2 diabetes mellitus without complications | CPT/HCPCS: 80053; 80061; 83036; 85025 ==

== ENCOUNTER 2024-04-18 09:15 | Outpatient (RCR) | payer MEDICARE, SELFPAY | END 2024-05-03 23:59 | disposition home or self-care (01) | LOC: SPT 09:15 | PROVIDERS: PCP Family Medicine; Visit Provider Family Medicine | DX: M54.50 Low back pain, unspecified (principal); G89.29 Other chronic pain | CPT/HCPCS: 97110; 97161 ==

== ENCOUNTER 2024-05-04 06:00 | Outpatient (RCR) | payer MEDICARE, SELFPAY | END 2024-05-31 23:59 | disposition home or self-care (01) | LOC: SPT 06:00 | PROVIDERS: PCP Family Medicine; Visit Provider Family Medicine | DX: M54.50 Low back pain, unspecified (principal); G89.29 Other chronic pain | CPT/HCPCS: 97110 ==

== ENCOUNTER → 2024-05-31 09:34 | Outpatient (BNVA) | payer MEDICARE, SELFPAY | PROVIDERS: PCP Family Medicine; Visit Provider Specialist | DX: M19.012 Primary osteoarthritis, left shoulder (principal); M75.82 Other shoulder lesions, left shoulder; Z71.89 Other specified counseling | CPT/HCPCS: 20610; J1100; J2795; J3301 ==

== ENCOUNTER 2024-06-01 06:30 | Outpatient (RCR) | payer MEDICARE, SELFPAY | END 2024-06-17 09:06 | disposition home or self-care (01) | LOC: SPT 06:30 | PROVIDERS: PCP Family Medicine; Visit Provider Family Medicine | DX: M54.50 Low back pain, unspecified (principal); G89.29 Other chronic pain | CPT/HCPCS: 97110 ==

== ENCOUNTER → 2024-07-03 13:36 | Outpatient (BNVA) | payer MEDICARE, SELFPAY | PROVIDERS: PCP Family Medicine; Visit Provider Family Medicine | DX: Z12.5 Encounter for screening for malignant neoplasm of prostate (principal); E11.9 Type 2 diabetes mellitus without complications; T78.40XA Allergy, unspecified, initial encounter; I10 Essential (primary) hypertension; E78.00 Pure hypercholesterolemia, unspecified; J30.2 Other seasonal allergic rhinitis; M19.012 Primary osteoarthritis, left shoulder; M54.50 Low back pain, unspecified; G89.29 Other chronic pain; G47.33 Obstructive sleep apnea (adult) (pediatric); N40.0 Benign prostatic hyperplasia without lower urinary tract symptoms; X58.XXXA Exposure to other specified factors, initial encounter | CPT/HCPCS: 83036; G0103 ==

== ENCOUNTER → 2024-08-30 09:44 | Outpatient (BNVA) | payer MEDICARE, SELFPAY | PROVIDERS: PCP Family Medicine; Visit Provider Specialist | DX: M19.012 Primary osteoarthritis, left shoulder (principal) | CPT/HCPCS: 20610; J1100; J2795; J3301; J9999 ==